=== PATIENT | female | born 1945 | race Caucasian/White ===

== ENCOUNTER 2016-05-23 16:19 | Emergency (ER) | payer MEDICARE ==
[2016-05-23] MEDS ORDERED: IOPAMIDOL 370 (76%) 100 ML VIAL IV ONE (16:20)
[2016-05-23 16:44] LABS: BASO # 0.1 K/mm3 (0.0-0.2); BASO % 0.6 % (0.2-1.0); EOS # 0.2 (0.0-0.5); EOS % 2.3 % (0.9-2.9); HEMATOCRIT 42.9 % (37.0-47.0); HEMOGLOBIN 14.2 gm/l (12.0-16.0); IMM NEUT% 0.4 % (0-1); LYMPH # 1.1 (1.0-4.8); LYMPH % 13.8 % (15-45); MEAN CELL VOLUME 96.4 fl (81.0-99.0); MEAN CORPUSCULAR HEMOGLOBIN 31.9 pg (27.0-31.0); MEAN CORPUSCULAR HGB CONC 33.1 g/dl (33.0-37.0); MEAN PLATELET VOLUME 11.3 fl (7.4-10.4); MONO # 0.6 (0.0-0.8); MONO % 7.8 % (4-12); NEUT % 75.1 % (43-75); PLATELET COUNT 221 K/mm3 (130-400); RED CELL DISTRIBUTION WIDTH 13.3 % (11.5-14.5)
[2016-05-23 16:53] LABS: INR 0.94; PARTIAL THROMBOPLASTIN TIME 21.9 SECONDS (24.5-33.0); PROTHROMBIN TIME 9.9 SECONDS (9.3-11.4)
[2016-05-23 16:54] LABS: ALB/GLOB RATIO 1.4 (>1.0); ALBUMIN 4.3 gm/dL (3.5-5.7); CALCIUM 9.9 mg/dL (8.6-10.3)
--- NOTE | 2016-05-23 17:03 | CT ---
Exams: CT head without contrast, CT angiogram head, CT angiogram neck COMPARISON: None INDICATION: Left facial droop and loss of coordination the left, difficulty speaking polysyllabic words. Technique: CT examination of the head was obtained without contrast. CT angiogram of the head and neck was then obtained following the administration of 80 mL Isovue-370 intravenous contrast using a CT angiogram protocol which was supplemented with MIP reformations from the CT workstation. FINDINGS: Unenhanced CT head: There is no acute intracranial hemorrhage. There is no abnormal intra or extra-axial fluid collection. Cortical tidwell-white matter differentiation is maintained and there is no mass effect or midline shift. Minor patchy periventricular and deep white matter hypodensities are identified, of uncertain chronicity given lack of comparisons, but most compatible with chronic small vessel ischemic changes. Acute lacunar infarct cannot be excluded. Ventricles are normal in size. The visualized paranasal sinuses and mastoid air cells are well aerated. CT angiogram neck: There is conventional three-vessel branching off of the aortic arch. The great vessels are widely patent. The bilateral common carotid arteries are widely patent. Minor calcified atheromatous plaques are seen at the carotid artery bifurcations bilaterally. The internal carotid arteries are noted to be ectatic but also widely patent. The left vertebral artery is dominant. Both vertebral arteries are ectatic, but a greater on the right, however these are widely patent. CT angiogram head: The vertebral arteries join to form the basilar artery which is widely patent. The cavernous portion of the intracranial carotid artery on the left has calcifications without significant stenosis. The bilateral middle cerebral, anterior cerebral and posterior sharp borders are widely patent. The distal intracranial arteries appear to enhance symmetrically. Lung apices are clear. There is multilevel cervical spondylosis, severe from C5 through C7. There is 2 mm of anterolisthesis of C3 on C4 likely related to underlying facet arthropathy. IMPRESSION: 1. No acute intracranial hemorrhage or definite CT evidence for acute ischemia. There are are minor patchy deep white matter hypodensities, most commonly seen in chronic small vessel ischemic changes and are of uncertain chronicity given lack of comparisons. Acute lacunar infarct cannot be excluded. 2. CT angiogram of the head is within normal limits. 3. Minimal calcified plaque formation is seen at the carotid artery bifurcations. There is no evidence of significant stenosis within the carotid arteries. Findings were discussed with Dr. Vicente at 1648 hours 05/23/2016.
[2016-05-23 17:17] LABS: URINE BILIRUBIN NEGATIVE (NEGATIVE); URINE BLOOD NEGATIVE (NEGATIVE); URINE GLUCOSE (UA) NEGATIVE (NEGATIVE); URINE LEUKOCYTE ESTERASE NEGATIVE (NEGATIVE); URINE NITRITE NEGATIVE (NEGATIVE); URINE PROTEIN NEGATIVE (NEGATIVE); URINE UROBILINOGEN NORMAL (0-1 mg/dl)
[2016-05-23 17:19] LABS: URINE APPEARANCE CLEAR; URINE COLOR YELLOW
[2016-05-23] MEDS ORDERED: SODIUM CHLORIDE 0.9% 1,000 ML ONE (18:00)
== END 2016-05-23 18:19 | disposition short-term general hospital (02) ==
LOC: ED 16:19
DX: I63.9 Cerebral infarction, unspecified (principal); R29.810 Facial weakness; R53.1 Weakness
CPT/HCPCS: 85025; 80053; 85730; 85610; 81003; 70450; 70496; 70498; 99285 ×2; 82962; J7030; Q9967